=== PATIENT | male | born 1940 | race Caucasian/White ===

== ENCOUNTER 2018-12-08 21:47 | Emergency (ER) | payer MEDICARE ==
[2018-12-08] MEDS ORDERED: ONDANSETRON 4 MG TAB.RAPDIS PO ONE (22:26)
--- NOTE | 2018-12-08 22:28 | ER Document Report ---
ED Medical Screen (RME) - General Chief Complaint: Nausea/Vomiting/Diarrhea Stated Complaint: ABDOMINAL PAIN Time Seen by Provider: 12/08/18 22:26 Mode of Arrival: Ambulatory Information source: Patient Notes: This 78-year-old male presents emergency department with complaints of abdominal pain that started this morning. Reports feels like when he had Salmonella. Patient reports he vomited had 4 small diarrhea stools. Reports his belly feels full bloated. Denies fever. Patient is a diabetic. Patient is visiting the area. No history of cardiac disease. Denies chest pain shortness of breath. I have greeted and performed a rapid initial assessment of this patient. A comprehensive ED assessment and evaluation of the patient, analysis of test results and completion of the medical decision making process will be conducted by additional ED providers. Dictation of this chart was performed using voice recognition software; therefore, there may be some unintended grammatical errors. TRAVEL OUTSIDE OF THE [place] IN LAST 30 DAYS: No Past Medical History - Social History Frequency of alcohol use: None Drug Abuse: None Physical Exam - Vital signs Vitals: Temp Pulse Resp BP Pulse Ox 97.5 F 51 L 18 149/64 H 98 12/08/18 22:13 12/08/18 22:13 12/08/18 22:13 12/08/18 22:13 12/08/18 22:13 Course - Vital Signs Vital signs: Temp Pulse Resp BP Pulse Ox 97.5 F 51 L 18 149/64 H 98 12/08/18 22:13 12/08/18 22:13 12/08/18 22:13 12/08/18 22:13 12/08/18 22:13
[2018-12-08 23:14] LABS: HEMATOCRIT 45.6 % (37.9-51.0); HEMOGLOBIN 15.8 g/dL (13.5-17.0); MEAN CORPUSCULAR HEMOGLOBIN 32.6 pg (27.0-33.4); MEAN CORPUSCULAR HGB CONC 34.7 g/dL (32.0-36.0); MEAN CORPUSCULAR VOLUME 94 fl (80-97); PLATELET COUNT 176 10^3/uL (150-450); RED BLOOD COUNT 4.85 10^6/uL (4.35-5.55); RED CELL DISTRIBUTION WIDTH 15.1 % (11.5-14.0); WHITE BLOOD COUNT 16.4 10^3/uL (4.0-10.5)
[2018-12-08 23:22] LABS: APPEARANCE,URINE SLIGHTLY-CLOUDY; BILIRUBIN,URINE NEGATIVE (NEGATIVE); GLUCOSE, URINE NEGATIVE (NEGATIVE); KETONES,URINE NEGATIVE (NEGATIVE); LEUKOCYTE ESTERASE,URINE NEGATIVE (NEGATIVE); NITRITE,URINE NEGATIVE (NEGATIVE); PROTEIN,URINE 100 mg/dL (NEGATIVE); URINE SPECIFIC GRAVITY 1.024; UROBILINOGEN,URINE NEGATIVE mg/dL (<2.0)
[2018-12-08 23:31] LABS: ALBUMIN 4.9 g/dL (3.5-5.0); ALKALINE PHOSPHATASE 55 U/L (38-126); ANION GAP 14 (5-19); ASPARTATE AMINO TRANSFERASE 24 U/L (17-59); BILIRUBIN,DIRECT 0.2 mg/dL (0.0-0.4); BILIRUBIN,TOTAL 1.9 mg/dL (0.2-1.3); BLOOD UREA NITROGEN 32 mg/dL (7-20); CALCIUM 10.1 mg/dL (8.4-10.2); CARBON DIOXIDE 25 mmol/L (22-30); CHLORIDE 101 mmol/L (98-107); GLUCOSE 251 mg/dL (75-110); POTASSIUM 4.7 mmol/L (3.6-5.0); TOTAL PROTEIN 7.6 g/dL (6.3-8.2)
[2018-12-08 23:33] LABS: COLOR,URINE DARK YELLOW
[2018-12-08 23:46] LABS: ABSOLUTE LYMPHOCYTES# (MANUAL) 1.1 10^3/uL (0.5-4.7); ABSOLUTE MONOCYTES # (MANUAL) 1.3 10^3/uL (0.1-1.4); BASOPHILS % (MANUAL) 0 % (0-2); EOSINOPHILS % (MANUAL) 0 % (0-6); LYMPHOCYTES % (MANUAL) 7 % (13-45); MONOCYTES % (MANUAL) 8 % (3-13); PLATELET COMMENT ADEQUATE; RBC MORPHOLOGY COMMENT NORMO-CYTIC/CHROMIC; SEGMENTED NEUTROPHILS % (MAN) 85 % (42-78); TOTAL CELLS COUNTED 100
--- NOTE | 2018-12-09 03:14 | ER Document Report ---
ED GI/ - General Chief Complaint: Nausea/Vomiting/Diarrhea Stated Complaint: ABDOMINAL PAIN Time Seen by Provider: 12/08/18 22:26 Mode of Arrival: Ambulatory Information source: Patient Notes: Patient complains of epigastric abdominal pain that started approximately 20 hours ago. Associated with nausea vomiting and diarrhea. Patient tells me he feels much better after throwing up a few hours ago here in the emergency room. Past abdominal surgical history appendectomy. Patient is a diabetic. No ill contacts. No chest pain or shortness of breath. No other complaints. TRAVEL OUTSIDE OF THE [place] IN LAST 30 DAYS: No - Related Data Allergies/Adverse Reactions: No Known Allergies Allergy (Unverified 12/09/18 04:06) Past Medical History - General Information source: Patient - Social History Smoking Status: Never Smoker Frequency of alcohol use: None Drug Abuse: None Family History: None Patient has suicidal ideation: No Patient has homicidal ideation: No Endocrine Medical History: Reports: Hx Diabetes Mellitus Type 2 Review of Systems - Review of Systems Constitutional: denies: Chills, Fever -: Yes All other systems reviewed and negative Physical Exam - Vital signs Vitals: Temp Pulse Resp BP Pulse Ox 97.5 F 51 L 18 149/64 H 98 12/08/18 22:13 12/08/18 22:13 12/08/18 22:13 12/08/18 22:13 12/08/18 22:13 - General General appearance: Appears well, Alert - HEENT Head: Normocephalic, Atraumatic Eyes: Normal Pupils: PERRL Mucous membranes: Dry - Respiratory Respiratory status: No respiratory distress Chest status: Nontender Breath sounds: Normal Chest palpation: Normal - Cardiovascular Rhythm: Regular Heart sounds: Normal auscultation Murmur: No - Abdominal Inspection: Normal Distension: No distension Bowel sounds: Normal Tenderness: Tender - EPIGASTRIC. No: Guarding, Rebound Organomegaly: No organomegaly Notes: ELEVATED BMI. - Back Back: Normal, Nontender. No: CVA tenderness - Extremities General upper extremity: Normal inspection, Nontender, Normal color, Normal ROM, Normal temperature General lower extremity: Normal inspection, Nontender, Normal color, Normal ROM, Normal temperature, Normal weight bearing. No: Ikya's sign - Neurological Neuro grossly intact: Yes Cognition: Normal Orientation: AAOx4 Dontrell Coma Scale Eye Opening: Spontaneous Harmony Coma Scale Verbal: Oriented Harmony Coma Scale Motor: Obeys Commands Dontrell Coma Scale Total: 15 Speech: Normal Motor strength normal: LUE, RUE, LLE, RLE Sensory: Normal - Psychological Associated symptoms: Normal affect, Normal mood - Skin Skin Temperature: Warm Skin Moisture: Dry Skin Color: Normal Course - Re-evaluation Re-evalutation: 12/09/18 03:53 EKG per me sinus bradycardia at a rate of 53. normal R wave progression. mild artifact. 12/09/18 04:54 I reviewed the lab work and CAT scan results with the patient. Patient feels better and wants to go home. He is able to keep down water by mouth. He will return at once if worse or new symptoms and follow-up with his own doctor tomorrow. - Vital Signs Vital signs: Temp Pulse Resp BP Pulse Ox 97.5 F 51 L 18 149/64 H 98 12/08/18 22:13 12/08/18 22:13 12/08/18 22:13 12/08/18 22:13 12/08/18 22:13 - Laboratory Result Diagrams: 12/08/18 22:45 12/08/18 22:45 Laboratory results interpreted by me: 12/08/18 12/08/18 12/08/18 22:45 22:45 22:45 WBC 16.4 H RDW 15.1 H Seg Neuts % (Manual) 85 H Lymphocytes % (Manual) 7 L Abs Neuts (Manual) 13.9 H BUN 32 H Creatinine 1.60 H Est GFR ( Amer) 51 L Est GFR (MDRD) Non-Af 42 L Glucose 251 H Total Bilirubin 1.9 H Urine Protein 100 H - Diagnostic Test Radiology reviewed: Image reviewed, Reports reviewed Discharge - Discharge Clinical Impression: Abdominal pain Qualifiers: Abdominal location: generalized Qualified Code(s): R10.84 - Generalized abdominal pain Condition: Stable Disposition: HOME, SELF-CARE Instructions: Abdominal Pain ([facility]) Additional Instructions: Return at once if worse or new symptoms. See your doctor tomorrow for recheck.
[2018-12-09] MEDS: NORMAL SALINE 500 ML IV ONE ×2 (03:44→03:59)
--- NOTE | 2018-12-09 04:39 | RADIOLOGY REPORT (SQ) ---
CLINICAL HISTORY: ABDOMINAL PAIN COMPARISON: None. TECHNIQUE: CT ABDOMEN PELVIS WITHOUT IV CONTRAST on 12/09/2018 3:07 AM CDT This exam was performed according to our departmental dose-optimization program, which includes automated exposure control, adjustment of the mA and/or kV according to patient size and/or use of iterative reconstruction technique. FINDINGS: Lower lungs are clear. Abdomen: The liver is normal in appearance. There is no biliary dilatation. Gallbladder is normal in appearance. The pancreas and spleen are normal in appearance. Adrenal glands are normal. Kidneys are mildly atrophic. There are small low-density lesions which are not simple cysts, including a 1.4 cm mid pole right renal lesion and a 2.1 cm mid to lower pole left renal lesion. Abdominal aorta is normal in course and caliber without aneurysm. There is no free air. There is no retroperitoneal adenopathy. Pelvis: There are several fluid-filled scattered small bowel loops throughout the abdomen. Urinary bladder is unremarkable. There is small amount of free pelvic fluid. Appendix is not well seen. Skeleton: There are no acute osseous findings. No suspicious bony lesions. IMPRESSION: Suspect scattered areas of small bowel enteritis. No overt findings of bowel obstruction.
[2018-12-09 06:00] VITALS: BP 139/62
--- NOTE | 2018-12-09 08:08 | EKG REPORT ---
SEVERITY:- NORMAL ECG - SINUS RHYTHM : Confirmed by: Jono Ruvalcaba MD 09-Dec-2018 08:08:05
== END 2018-12-09 05:00 | disposition home or self-care (01) ==
LOC: ER 21:47
DX: R10.84 Generalized abdominal pain (principal); R10.816 Epigastric abdominal tenderness; R11.2 Nausea with vomiting, unspecified; R19.7 Diarrhea, unspecified; Z90.49 Acquired absence of other specified parts of digestive tract; E11.9 Type 2 diabetes mellitus without complications; R00.1 Bradycardia, unspecified
CPT/HCPCS: 93005; 36415; 83690; 85025; 80053; 81001; 74176; 93010; A9270; J7040; S0119